=== PATIENT | female | born 1995 | race Caucasian/White ===

== ENCOUNTER 2023-07-16 13:03 | Outpatient (AMB) | payer OTHER, MEDICAID, SELFPAY ==
--- NOTE | 2023-07-16 13:08 | A.OFFVIS_ITS ---
Intake VS Expanded 07/16/23 13:35 07/25/23 12:04 Height 5 ft 5 in 5 ft 5 in Weight 193 lb 193 lb BMI 32.1 32.1 Intake Visit Reasons: Obesity,PCOS Allergies apple [APPLES] Allergy (Unknown, Unverified 07/14/20 19:15) SWELLING peach [PEACHES] Allergy (Unknown, Unverified 07/14/20 19:15) SWELLING sims Allergy (Verified 07/25/23 12:21) Anaphylaxis codeine [CODEINE] Adverse Reaction (Unknown, Unverified 07/14/20 19:15) AGITATION Medication List - Last Reconciled 07/25/[address], LDN alprazolam (Xanax) 1 mg PO BID lactulose (Kristalose) 10 grams PO BID methylphenidate HCl ER (Concerta) 36 mg PO .twice daily norethindrone (contraceptive) 0.35 mg PO DAILY zolpidem 5 mg PO BEDTIME HPI Nutrition Presentation Details Pt presents for MNT for obesity, hx of eating disorder, PCOS. Pt was referred by PCP, Dr. Luis Mooney Pt reports having hx of severe adhd Pt reports having gained 40 lbs over a year. Pt reports having had nutrition counseling in the past related to eating disorder Pt states her blood sugar were elevated, and has pending results for A1c Pt reports taking lactulose as rx by MD Denies vomiting/diarrhea/purging Typical meal B: cheerios (multigrain ) water or coffee ( half and half and sugar- order regular L: skips D: salmon , quinoa and broccoli , pepper /garlic , water cheese and crackers or honey toast bland foods d/t GI side effects takes women iron supplement, Has allergic reaction to apples, peaches and sims - cherries lead to anaphylactic rxn ETOH: abstaining Pt has hx of opioid dependance WAY-Wbkwlgn-Mn.Jeor Equation Height 5 ft 5 in Weight 193 lb Resting Metabolic Rate 1617.51 Calculated Activity Level Sedentary Calories Needed to Maintain Weight 1941.01 Diagnosis Nutrition problem #1 food nutri know defi As related to (etiology) #1 diagnosis As evidenced by (sign/symptom) #1 knowledge deficit of diet Most Recent Diabetes Results: No Data to Display [facility] Medical History (Updated 07/25/23 @ 12:[address], LDN) Eating disorder Attention and concentration deficit Vomiting Constipation Insomnia Generalized anxiety disorder Major depressive disorder, recurrent Opioid dependence PCOS (polycystic ovarian syndrome) Assessment & Plan Assessment & Plan (1) Obesity due to excess calories with serious comorbidity: Code(s): E66.09 - Other obesity due to excess calories Plan: wt : 88kg Est kcal needs as per MSJ: 2000 (40% carb, 30% protein/fat) Est fluid needs as per 30 ml/d: 2600 Est prot per day as per 1 g/kg bw: 88 Recommend fiber intake : 8-10 g per day and gradually increase to 25-28 g per day for women and 35-38 g for men or as tolerated Recommend sodium intake per day : less than 2000 mg Educated patient on: ( R = reviewed V = verbalizes understanding N/R = needs review N/A = not applicable * Food sources of carbohydrate, adequate serving sizes and its role in various health conditions: R * Differences between complex carbohydrates a simple carbohydrates, role of fiber in diet: R * Healthy plate method concept: R * Physical activity: Benefits a precaution: R * Differences between types of fats and role in diet (mono on saturated fat fatty acids, saturated fatty acids, trans fats): NR * Food sources of sodium in salt and healthy modifications for heart health in kidney health: NR * Vitamins and minerals: R Patient Instructions: Work on having 3 balanced meals per day following healthy plate method See 2000 lula meal plan Incorporate high fiber sources of foods (vegetables/fruits/whole grains) Drink water with meals and snacks, and increase water as you increase fiber intake Coding Level of Care Code Nutr Indiv Intake (52303) Diagnoses Obesity due to excess calories with serious comorbidity E66.09 Time Spent (min) 30
[2023-07-16 13:35] VITALS: BMI 32.1
[2023-07-25 12:04] VITALS: BMI 32.1
== END 2023-07-16 13:59 | disposition home or self-care (01) ==
PROVIDERS: PCP Hospitalist; Visit Provider Dietitian, Registered
DX: E66.09 Other obesity due to excess calories (principal)

== ENCOUNTER → 2023-07-16 13:03 | Outpatient (BNVA) | payer OTHER, MEDICAID, SELFPAY | PROVIDERS: Visit Provider Dietitian, Registered | DX: E66.09 Other obesity due to excess calories (principal); Z68.32 Body mass index [BMI] 32.0-32.9, adult; Z71.3 Dietary counseling and surveillance | CPT/HCPCS: 97802 ==